=== PATIENT | male | born 1965 ===

== ENCOUNTER 2018-09-10 20:53 | Emergency (ER) | payer SELFPAY ==
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
== END 2018-09-10 22:49 ==
LOC: ED 20:53
DX: S00.93XA Contusion of unspecified part of head, initial encounter (principal); S16.1XXA Strain of muscle, fascia and tendon at neck level, initial encounter; S39.012A Strain of muscle, fascia and tendon of lower back, initial encounter; V49.40XA Driver injured in collision with unspecified motor vehicles in traffic accident, initial encounter
CPT/HCPCS: 70450; 72125; 72128; 72131; 99281; 99282; L0120